=== PATIENT | male | born 2000 | race Two or more races ===

== ENCOUNTER 2024-08-24 18:24 | Emergency (ER) | payer MEDICAID, SELFPAY ==
[2024-08-24 20:03] VITALS: BP 123/76; PULSE 70; RESP 16; TEMP 38.3; O2SAT 98
--- NOTE | 2024-08-24 20:03 | XR_ITS ---
Examination: PA chest single view TECHNIQUE: Upright PA chest single view Date and time: August 24, 2024 2006 hours INDICATIONS: Epigastric pain shortness of breath today FINDINGS: Suspicious for early left lower lobe pneumonia Normal heart size Right lung clear No pulmonary edema IMPRESSION: Early left lower lobe pneumonia
--- NOTE | 2024-08-24 20:03 | XR_ITS ---
Examination: Abdomen sonogram, Limited Date and time of exam: August 24, 2024 2018 hours INDICATIONS: Epigastric pain with vomiting today Technique: Real-time swenson scale transabdominal sonographic images of the upper abdomen obtained. Findings: Negative for gallstones Gallbladder wall 0.37 cm no edema Normal common bile duct 0.3 cm Pancreatic head 2.2 cm Liver 14.3 cm no liver lesions Normal bilateral renal cortical venous and Patent IVC IMPRESSION: Cholelithiasis, negative for cholecystitis
--- NOTE | 2024-08-24 20:04 | PD.EDSOB ---
ED SOB =RME/HPI General Chief Complaint: Shortness of Breath/Dyspnea Stated Complaint: SOB, chest pain, vomiting X 6 Time Seen by Provider: 08/24/24 20:03 Arrival date/time: 08/24/24 18:24 RME / HPI RME / HPI Narrative: 24-year-old male patient came in for evaluation regarding epigastric pain. Onset of symptoms since early this morning as epigastric pain, associated with shortness of breath, severity moderate. Patient also complained of nonproductive cough for several days. Patient was noted to have low-grade fever in the triage. Patient denies any sore throat denies any headache denies any vomiting denies any diarrhea denies any other complaints no medication was taken prior to arrival. Related Data Previous Rx's ?Medication ?Instructions ?Recorded amoxicillin 875 mg-potassium 1 tab PO BID #14 tabs 08/24/24 clavulanate 125 mg tablet dicyclomine 20 mg tablet 20 mg PO TID PRN abdominal pain 08/24/24 #30 tabs ibuprofen 600 mg tablet 600 mg PO Q8H PRN pain #30 tabs 08/24/24 Allergies Allergy/AdvReac Type Severity Reaction Status Date / Time No Known Drug Allergies Allergy Verified 08/24/24 18:31 Review of Systems Review of Systems Narrative Review of Systems: Review of system reviewed and within normal limits except mentioned in HPI ED Exam Narrative Physical exam: VITAL SIGNS: Reviewed. GENERAL APPEARANCE: Alert and interactive, follows commands, no acute distress, HEAD AND FACE: Non-traumatic. ENT: PERRL, pink conjunctivitis, eyelid no trauma, Mucous membrane moist. NECK: Supple, nontender, no nuchal rigidity. CHEST: No tenderness, no crepitus, no paradoxical movement, no retractions. LUNGS: Clear, well ventilated, symmetric, no rales, no wheezing, no ronchi, no stridor, good breath sounds bilaterally. HEART: Regular rate, regular rhythm, no murmur, no gallops. ABDOMEN: Soft, positive bowel sounds, nondistended, no guarding, epigastric tenderness, no rebound, no masses, RECTAL: Deferred. GENITAL: Deferred. NEUROLOGICAL: Gross motor function intact sensory function intact, Appropriate for age. MUSCULOSKELETAL: low back nontender, full range of motion. EXTREMITIES: Nontender, full range of motion. SKIN: Color pink, dry, no rash, no lacerations, no abrasions, no contusions. LYMPHATICS: Deferred. Course Quality Measures none Orders Category Date Time Status US gall bladder Stat Exams 08/24/24 20:03 Completed XR chest 1V Stat Exams 08/24/24 20:03 Completed CBC Stat Lab 08/24/24 20:31 Completed Comprehensive Metabolic Panel Stat Lab 08/24/24 20:31 Completed Lipase Stat Lab 08/24/24 20:31 Completed Prothrombin Time with INR Stat Lab 08/24/24 20:31 Completed Amoxicillin/Pot Clav 875 [Augmentin 875] Med 08/24/24 21:47 Discontinued 1 tab PO X1 ONE Ibuprofen Tab [Motrin Tab] Med 08/24/24 20:04 Discontinued 600 mg PO X1 ONE Vital Signs Vital signs: Vital Signs Temperature 100.9 F H 08/24/24 20:03 Pulse Rate 70 08/24/24 20:03 Respiratory Rate 16 08/24/24 20:03 Blood Pressure 123/76 08/24/24 20:03 Pulse Oximetry (%) 98 08/24/24 20:03 Oxygen Delivery Method Room Air 08/24/24 20:03 Shortness of Breath / Dyspnea MDM Narrative MDM Narrative:: 24-year-old male patient came in for evaluation regarding epigastric pain. Onset of symptoms since early this morning as epigastric pain, associated with shortness of breath, severity moderate. Patient also complained of nonproductive cough for several days. Patient was noted to have low-grade fever in the triage. Patient denies any sore throat denies any headache denies any vomiting denies any diarrhea denies any other complaints no medication was taken prior to arrival. Ultrasound of gallbladder showed cholelithiasis with no sign of acute cholecystitis, clinically there is no sign of acute cholecystitis. Chest x-ray showed pneumonia. Otherwise unremarkable. Patient was given Augmentin in the emergency room, and Motrin with complete resolution of symptoms. Patient was advised to follow-up closely with general surgeon for outpatient management of the gallbladder. Patient data External records reviewed:: None Clinical information provided by:: patient Social determinants that could affect healthcare access:: none Patient has the following chronic illnesses:: None How is presenting disease/condition affected by chronic disease/condition?: no chronic disease Evaluation data The following diagnostics were reviewed and interpreted by me:: lab results and radiology exam(s) Lab and/or radiology exams considered but not ordered:: None Interpretation Summary: See results MDM Medications / Prescriptions Medications or Prescriptions considered but not ordered:: None Medication administrations:: Medication Administration History Discontinued Medications Amoxicillin/Clavulanate Potassium (Amoxicillin/Pot Clav 875 Tablet) 1 tab PO X1 ONE Stop: 08/24/24 21:48 Last Admin: 08/24/24 22:28 Dose: 1 tab Documented By: CVL Ibuprofen (Ibuprofen Tab 600 Mg Tablet) 600 mg PO X1 ONE Stop: 08/24/24 20:05 Last Admin: 08/24/24 20:53 Dose: 600 mg Documented By: CVL Augmentin and Motrin Consultations Consultation(s) initiated? (list below): No Diagnosis Shortness of Breath Differential Diagnosis: community acquired pneumonia and other (Epigastric pain, biliary colic, cholelithiasis) Most likely diagnosis given after review of the tests above:: Cholelithiasis, pneumonia Admission Indicated Admission indicated?: not indicated Explain why admission is indicated or not indicated:: Stable Admission Request Was there a request for admission?: No Disposition Plan Disposition Plan: Discharge Discharge Attestation Discharge Attestation: The patient and all family members were given an opportunity to ask questions and understood the discharge instructions. Discharge instructions specifically effects, indications for sooner follow up or return to the emergency department, and the expected course of current diagnosis. Patient condition: Stable Discharge Plan Plan Patient Disposition: HOME (Self Care) Discharge Disposition comment: stable Prescriptions/Referrals Prescriptions/Med Rec: New amoxicillin-pot clavulanate 875-125 mg tablet 1 tab PO BID Qty: 14 0RF dicyclomine 20 mg tablet 20 mg PO TID PRN (Reason: abdominal pain) Qty: 30 0RF ibuprofen 600 mg tablet 600 mg PO Q8H PRN (Reason: pain) Qty: 30 0RF Referrals: No Primary/Family,Physician [Primary Care Provider] - In 1 week Problem List Clinical Impression: Cholelithiasis, Pneumonia Patient/Caregiver Discharge Instructions Discharge Activity: activity as tolerated Education Materials: ED Pneumonia (Adult) Additional Instructions: Thank you for the opportunity for serving you today. You are stable for discharged . You are advised to: Follow-up with your PCP in 1 to 2 days and as per PCP to refer you to general surgeon Please avoid eating fatty, greasy, fried food Return to ED for worsening of symptoms Increase oral fluids Take medication as prescribed Print Language: Hungarian Stand Alone Forms: Vicky Award Info., Patient Portal Info Letter
[2024-08-24] MEDS: IBUPROFEN TAB 600 MG TABLET PO (20:53)
[2024-08-24 21:22] LABS: Basophils % (Auto) 0 % (0-2.5); Eosinophils # (Auto) 0.1 Thou/mm3 (0.0-0.5); Eosinophils % (Auto) 1 % (0-10); Hematocrit 41.7 % (41.0-53.0); Hemoglobin 14.1 g/dL (13.5-16.0); Immature Granulocytes % (Auto) 0 % (0-0); Immature Granulocytes Auto 0.03 Thou/mm3 (0.00-0.00); Lymphocytes # (Auto) 1.3 Thou/mm3 (1.0-4.8); Lymphocytes % (Auto) 12 % (10-50); Mean Corpuscular HGB Conc 33.8 g/dl (31.0-37.0); Mean Corpuscular Hemoglobin 29.6 pg (25.0-35.0); Mean Corpuscular Volume 88 fL (80-100); Monocytes # (Auto) 1.2 Thou/mm3 (0.0-0.8); Monocytes % (Auto) 11 % (0-12); Neutrophils # (Auto) 8.3 Thou/mm3 (1.8-7.7); Neutrophils % (Auto) 75 % (37-80); Nucleated Red Blood Cell % 0 /100 WBC (0); Platelet Count 160 Thou/mm3 (140-440); RDW Standard Deviation 41.2 fL (35.1-43.9); Red Blood Count 4.76 Miln/mm3 (4.50-5.90)
[2024-08-24 21:45] LABS: Alanine Aminotransferase 20 U/L (10-49); Albumin, Serum 4.9 gm/dL (3.5-5.0); Alkaline Phosphatase 111 U/L (46-116); Anion Gap 10 (7-16); Aspartate Amino Transferase 28 U/L (0-34); BUN/Creatinine Ratio 16 Ratio (12-20); Bilirubin,Total 0.6 mg/dL (0.3-1.2); Blood Urea Nitrogen 14 mg/dL (9-23); Calcium 9.2 mg/dL (8.3-10.6); Calcium (Corrected) 9.2 mg/dL (8.5-10.1); Carbon Dioxide 27.5 mMol/L (20.0-31.0); Chloride 103 mMol/L (98-107); Creatinine (Component) 0.9 mg/dL (0.6-1.3); Globulin 2.5 gm/dL (2.3-3.5); Glucose 88 mg/dL (74-106); Lipase 25 U/L (12-53); Osmolality,Calculated 278 (275-295); Potassium 4.1 mMol/L (3.4-5.1); Prothrombin Time 10.5 Seconds (9.0-12.2); Sodium 140 mMol/L (136-145); Total Protein 7.4 gm/dL (5.7-8.2); eGFR > 60 See Note
[2024-08-24] MEDS: AMOXICILLIN/POT CLAV 875 TABLET 1 TAB PO (22:28)
[2024-08-24 22:30] VITALS: RESP 16
== END 2024-08-24 22:30 | disposition home or self-care (01) ==
PROVIDERS: Nurse Practitioner Family; Emergency Provider Emergency Medicine
DX: J18.9 Pneumonia, unspecified organism (principal); K80.20 Calculus of gallbladder without cholecystitis without obstruction
CPT/HCPCS: 36415; 71045; 76705; 80053; 83690; 85025; 85610; 99284; A9270